=== PATIENT | female | born 1960 | race Caucasian/White ===

== ENCOUNTER 2016-12-15 05:31 | Outpatient (CLI) | payer BC, OTHER ==
[~2016-12-15] VITALS: Ht 160 cm; Wt 93.0 kg
[2016-12-15] MEDS ORDERED: DICL75TA2 PO (08:39)
[2016-12-15] MEDS ORDERED: ATOR20TA66 PO (08:39)
[2016-12-16] MEDS ORDERED: HYDR-3812 PO (12:42)
== END 2016-12-15 10:29 ==
LOC: PREOP 05:31
PROVIDERS: ATTEND Otolaryngology Otolaryngology/Facial Plastic Surgery
DX: Z01.818 Encounter for other preprocedural examination (principal); Z11.2 Encounter for screening for other bacterial diseases; S02.2XXA Fracture of nasal bones, initial encounter for closed fracture; J34.2 Deviated nasal septum

== ENCOUNTER 2016-12-16 07:46 | Day surgery (SDC) | payer BC, OTHER ==
[~2016-12-16] VITALS: Ht 160 cm; Wt 93.0 kg
[~2016-12-16 07:46] MED LIST: ATOR20TA66 PO; DICL75TA2 PO
[2016-12-16] MEDS ORDERED: LACTATED RINGERS 1,000 ML IV PRN (08:02)
[2016-12-16] MEDS ORDERED: ONDANSETRON 4 MG/2 ML (SDV) Z0FRAN IV ONE (08:15)
[2016-12-16] MEDS ORDERED: FAMOTIDINE 20MG/2ML IV (PEPCID) IV ONE (08:15)
[2016-12-16] MEDS ORDERED: MIDAZOLAM 2 MG/2 ML (VERSED) VIAL ONE (08:33)
[2016-12-16] MEDS ORDERED: proPOfol 200 MG/20 ML (DIPRIVAN) VIAL IV ONE (08:33)
[2016-12-16] MEDS ORDERED: LIDOCAINE PF 0.5% 50 ML (XYLOCAINE) VIAL ONE (08:33)
[2016-12-16] MEDS ORDERED: ROCURONIUM 50 MG/5 ML (ZEMURON) VIAL IV ONE (08:33)
[2016-12-16] MEDS ORDERED: fentaNYL INJECTION 250 MCG/5 ML AMP ONE (08:34)
[2016-12-16] MEDS ORDERED: LACTATED RINGERS 1,000 ML IV ONE (08:40)
[2016-12-16] MEDS ORDERED: ONDANSETRON 4 MG/2 ML (SDV) Z0FRAN ONE (08:40)
[2016-12-16 08:46] VITALS: BP 131/81
[2016-12-16] MEDS ORDERED: COCAINE HCL 4% 2 ML SYR ONE (08:53)
[2016-12-16] MEDS ORDERED: PHENYLEPHRINE 0.25% NASAL SPR (NEO-SYNEPHRINE) 15 ML NS ONE (08:53)
[2016-12-16] MEDS ORDERED: LIDOCAINE/EPI 1%-1:100,000 (XYLOCAINE) 20ML ONE (08:54)
[2016-12-16] MEDS ORDERED: MUPIROCIN 2% OINT 22 GM (BACTROBAN) TUBE ONE (08:54)
--- NOTE | 2016-12-16 09:46 | Progress Note-Pre Operative ---
Pre-Operative Progress Note H&P Reviewed The H&P was reviewed, patient examined and no changes noted. Date Seen by Provider: Dec 16, 2016 Time Seen by Provider: : Date H&P Reviewed: Dec 16, 2016 Time H&P Reviewed: 08:30 Pre-Operative Diagnosis: Diplaced Nasal Fracture, Possible septal fracture FRAN CAN MD Dec 16, 2016 9:46 am
[2016-12-16] MEDS ORDERED: D5 1/2 NS W/KCL 20 MEQ/L 1,000 ML IV SCH (10:24)
--- NOTE | 2016-12-16 10:24 | Progress Note-Post Operative ---
Post-Operative Progess Note Surgeon (s)/Canvassing Manager (s) Surgeon FRAN CAN MD Canvassing Manager n/a Pre-Operative Diagnosis Diplaced Nasal Fracture, Possible septal fracture Post-Operative Diagnosis same Post-Op Procedure Note Date of Procedure: Dec 16, 2016 Name of Procedure Performed: Closed Reduction of Nasal Fracture Description & Findings Description and Findings: n/a Anesthesia Type get Estimated Blood Loss minimal Packing none. Specimen(s) collected/removed none FRAN CAN MD Dec 16, 2016 10:24 am
[2016-12-16] MEDS ORDERED: SEVOFLURANE (ULTANE) 15 ML INHAL SOLN ONE (10:25)
[2016-12-16] MEDS ORDERED: HYDROcodone/APAP 5 MG/325 MG (LORTAB) TAB PO PRN (10:30)
[2016-12-16] MEDS ORDERED: ACETAMINOPHEN 325 MG TABLET/CAPLET (TYLENOL) PO PRN (10:30)
[2016-12-16] MEDS ORDERED: morphine INJ 10 MG/ML 1ML (SYR OR VIAL) IVP PRN (11:00)
[2016-12-16] MEDS ORDERED: ONDANSETRON 4 MG/2 ML (SDV) Z0FRAN IVP PRN (11:00)
[2016-12-16 11:35] VITALS: BP 135/90
[2016-12-16 12:05] VITALS: BP 133/86
[2016-12-16 12:35] VITALS: BP 118/87
[2016-12-16] MEDS ORDERED: HYDR-3812 PO (12:42)
[2016-12-16 13:30] VITALS: BP 118/87
== END 2016-12-16 13:30 | disposition home or self-care (01) ==
LOC: SDC 07:46
PROVIDERS: ATTEND Otolaryngology Otolaryngology/Facial Plastic Surgery
DX: S02.2XXA Fracture of nasal bones, initial encounter for closed fracture (principal); E78.00 Pure hypercholesterolemia, unspecified; W01.10XA Fall on same level from slipping, tripping and stumbling with subsequent striking against unspecified object, initial encounter
CPT/HCPCS: 87081